=== PATIENT | male | born 1965 | race Caucasian/White ===

== ENCOUNTER → 2018-07-06 | Outpatient (REF) | payer BC | LOC: M SFHCPLAZ 17:13 | PROVIDERS: ATTEND Dermatology | DX: D23.5 Other benign neoplasm of skin of trunk (principal) ==

== ENCOUNTER → 2021-01-23 | Outpatient (CLI) | payer BC | LOC: M LABSMTC 09:16 | PROVIDERS: ATTEND Anesthesiology | DX: Z01.818 Encounter for other preprocedural examination (principal) ==

== ENCOUNTER 2021-01-28 08:32 | Day surgery (SDC) | payer BC ==
[~2021-01-28] VITALS: Ht 170.2 cm; Wt 70.3 kg
[~2021-01-28 08:32] MED LIST: LIDOCAINE 2% 100MG/5ML SDV (FOR ANES.) As Ordered ONE; propofoL 200 MG/20 ML VIAL As Ordered ONE
--- NOTE | 2021-01-28 09:58 | ROOR ---
Patient Name: Eric Lopez Procedure Date: 01/28/2021 9:39 AM Date of : 1965 Age: 56 Room: [facility] Gender: Male Note Status: Finalized Procedure: Colonoscopy Indications: Screening for colorectal malignant neoplasm Providers: Jose Price Jr, MD Referring MD: Juli MORRIS DO Requesting Provider: Medicines: Propofol per Anesthesia Complications: No immediate complications. Procedure: Pre-Anesthesia Assessment: - Prior to the procedure, a History and Physical was performed, and patient medications and allergies were reviewed. The patient is competent. The risks and benefits of the procedure and the sedation options and risks were discussed with the patient. All questions were answered and informed consent was obtained. Patient identification and proposed procedure were verified by the physician and the nurse in the pre-procedure area and in the procedure room. Mental Status Examination: alert and oriented. Airway Examination: normal oropharyngeal airway and neck mobility. Respiratory Examination: clear to auscultation. CV Examination: normal. ASA Grade Assessment: II - A patient with mild systemic disease. After reviewing the risks and benefits, the patient was deemed in satisfactory condition to undergo the procedure. The anesthesia plan was to use moderate sedation / analgesia (conscious sedation). Immediately prior to administration of medications, the patient was re-assessed for adequacy to receive sedatives. The heart rate, respiratory rate, oxygen saturations, blood pressure, adequacy of pulmonary ventilation, and response to care were monitored throughout the procedure. The physical status of the patient was re-assessed after the procedure. The Colonoscope was introduced through the anus and advanced to the cecum, identified by appendiceal orifice and ileocecal valve. The colonoscopy was performed without difficulty. The patient tolerated the procedure well. The quality of the bowel preparation was adequate. Findings: The rectum, recto-sigmoid colon, descending colon, cecum, appendiceal orifice and ileocecal valve appeared normal. Four polyps were found in the sigmoid colon, transverse colon and ascending colon. The polyps were small in size. These polyps were removed with a cold snare. Resection and retrieval were complete. A few small-mouthed diverticula were found in the sigmoid colon. Impression: - The rectum, recto-sigmoid colon, descending colon, cecum, appendiceal orifice and ileocecal valve are normal. - Four small polyps in the sigmoid colon, in the transverse colon and in the ascending colon, removed with a cold snare. Resected and retrieved. - Diverticulosis in the sigmoid colon. Recommendation: - Discharge patient to home (ambulatory). - Repeat colonoscopy in 5 years for surveillance. Procedure Code(s): --- Professional --- 23271, Colonoscopy, flexible; with removal of tumor(s), polyp(s), or other lesion(s) by snare technique Diagnosis Code(s): --- Professional --- Z12.11, Encounter for screening for malignant neoplasm of colon K63.5, Polyp of colon K57.30, Diverticulosis of large intestine without perforation or abscess without bleeding CPT copyright 2019 [employer]. All rights reserved. The codes documented in this report are preliminary and upon maintainer central office review may be revised to meet current compliance requirements. Jose Price MD Jose Prcie Jr, MD 01/28/2021 9:57:20 AM Electronically signed by Jose Price Jr, MD Number of Addenda: 0 Note Initiated On: 01/28/2021 9:39 AM Estimated Blood Loss: Estimated blood loss: none.
[2021-01-28 10:22] VITALS: BP 123/75
== END 2021-01-28 10:23 | disposition home or self-care (01) ==
LOC: M OPP 08:32
PROVIDERS: ATTEND Surgery
DX: Z12.11 Encounter for screening for malignant neoplasm of colon (principal); K63.5 Polyp of colon; K57.30 Diverticulosis of large intestine without perforation or abscess without bleeding